=== PATIENT | female | born 1995 | race Caucasian/White ===

== ENCOUNTER → 2018-01-22 13:45 | Observation (INO) ==
[2018-01-22 12:59] LABS: Basophils % 0.2 %; Eosinophils # 0.1 K/mcL (0.0-0.6); Eosinophils % 0.9 %; Hematocrit 31.6 % (35.3-44.9); Hemoglobin 10.9 g/dL (11.5-15.4); Immature Granulocytes % 0.6 % (0-4); Lymphocytes # 2.5 K/mcL (0.6-4.6); Lymphocytes % 24.3 %; Mean Corpuscular HGB Conc 34.5 g/dL (31.6-35.5); Mean Corpuscular Hemoglobin 29.9 pg (28.0-33.3); Mean Corpuscular Volume 86.8 fL (83.0-100.0); Mean Platelet Volume 9.9 fL (9.4-12.4); Monocytes # 0.9 K/mcL (0.0-1.3); Monocytes % 8.2 %; Neutrophils # 6.9 K/mcL (1.6-8.9); Platelet Count 250 K/mcL (140-400); Red Blood Count 3.64 M/mcL (3.82-4.97); Red Cell Distribution Width 13.3 % (11.5-14.5); Segmented Neutrophils % 65.8 %
[2018-01-22 12:59] LABS: Bilirubin,Urine Negative (Negative); Blood,Urine Small (Negative); Clarity,Urine Cloudy (Clear); Color,Urine Yellow (Yellow); Glucose,Urine (UA) Normal (Normal); Ketones,Urine Trace mg/dL (Negative); Leukocyte Esterase,Urine Small (Negative); Nitrite,Urine Negative (Negative); PH,Urine 6.5 pH Units (5.0-8.0); Protein,Urine Negative (Neg-Trace); Specific Gravity,Urine 1.014 (1.010-1.025); Urobilinogen,Urine Normal (Normal)
[2018-01-22 13:02] LABS: Bacteria,Urine None Seen per hpf (None-Few); Hyaline Casts,Urine None Seen per lpf (None-Few); Squamous Epithelial Cell,Urine Many per lpf (None-Few)
[2018-01-22 13:10] LABS: Amphetamine Screen,Urine Negative ng/mL (Cutoff=1000); Barbiturate Screen,Urine Negative ng/mL (Cutoff=200); Benzodiazepines Screen,Urine Negative ng/mL (Cutoff=200); Cannabinoid Screen,Urine Negative ng/mL (Cutoff = 50); Cocaine Screen,Urine Negative ng/mL (Cutoff= 300); Opiate Screen,Urine Negative ng/mL (Cutoff=300); Phencyclidine Screen,Urine Negative ng/mL (Cutoff=25); Potassium 3.6 mEq/L (3.5-5.1)
--- NOTE | 2018-01-22 13:39 | Discharge Summary ---
Date of Encounter: 01/22/18 Time of Encounter: 13:39 - Discharge Diagnosis (1) 34 weeks gestation of Priority: Primary Status: Acute Comments: admitted to for observation (2) Nausea & vomiting Priority: Secondary Status: Acute Comments: Patient will take Zofran and Promethazine as noted. Qualifiers: Vomiting type: unspecified Vomiting Intractability: unspecified Qualified Code(s): R11.2 - Nausea with vomiting, unspecified - Discharge Medications Home Medications: Metoclopramide [Reglan] 10 mg PO Q6HR PRN #30 tablet 07/18/17 [Rx] Allergies/Adverse Reactions: 3 Allergy/AdvReac Type Severity Reaction Status Date / Time No Known Allergies Allergy Verified 07/18/17 14:40 Data Procedures and tests throughout hospitalization: Laboratory Tests 01/22/18 01/22/18 01/22/18 11:45 11:45 11:45 WBC 10.5 RBC 3.64 L Hgb 10.9 L Hct 31.6 L MCV 86.8 MCH 29.9 MCHC 34.5 RDW 13.3 Plt Count 250 MPV 9.9 Immature Gran % 0.6 Seg Neutrophils % 65.8 Lymphocytes % 24.3 Monocytes % 8.2 Eosinophils % 0.9 Basophils % 0.2 Neutrophils # 6.9 Lymphocytes # 2.5 Monocytes # 0.9 Eosinophils # 0.1 Basophils # 0.0 Sodium 138 Potassium 3.6 Chloride 107 Carbon Dioxide 21 L Urine Color Urine Clarity Urine pH Ur Specific Victor Urine Protein Urine Glucose (UA) Urine Ketones Urine Blood Urine Nitrite Urine Bilirubin Urine Urobilinogen Ur Leukocyte Esterase Urine Microscopic RBC Urine Microscopic WBC Ur Squamous Epith Cells Urine Bacteria Hyaline Casts Ur Culture Indicated? Urine Opiates Screen Negative Ur Barbiturates Screen Negative Ur Phencyclidine Scrn Negative Ur Amphetamines Screen Negative U Benzodiazepines Scrn Negative Urine Cocaine Screen Negative U Marijuana (THC) Screen Negative 01/22/18 12:01 WBC RBC Hgb Hct MCV MCH MCHC RDW Plt Count MPV Immature Gran % Seg Neutrophils % Lymphocytes % Monocytes % Eosinophils % Basophils % Neutrophils # Lymphocytes # Monocytes # Eosinophils # Basophils # Sodium Potassium Chloride Carbon Dioxide Urine Color Yellow Urine Clarity Cloudy A Urine pH 6.5 Ur Specific Victor 1.014 Urine Protein Negative Urine Glucose (UA) Normal Urine Ketones Trace H Urine Blood Small H Urine Nitrite Negative Urine Bilirubin Negative Urine Urobilinogen Normal Ur Leukocyte Esterase Small H Urine Microscopic RBC 3-5 H Urine Microscopic WBC 5-15 H Ur Squamous Epith Cells Many H Urine Bacteria None Seen Hyaline Casts None Seen Ur Culture Indicated? NO. A Urine Opiates Screen Ur Barbiturates Screen Ur Phencyclidine Scrn Ur Amphetamines Screen U Benzodiazepines Scrn Urine Cocaine Screen U Marijuana (THC) Screen Labs on day of discharge: Labs from last 24 hours 01/22/18 01/22/18 01/22/18 12:01 11:45 11:45 WBC RBC Hgb Hct MCV MCH MCHC RDW Plt Count MPV Immature Gran % Seg Neutrophils % Lymphocytes % Monocytes % Eosinophils % Basophils % Neutrophils # Lymphocytes # Monocytes # Eosinophils # Basophils # Sodium 138 Potassium 3.6 Chloride 107 Carbon Dioxide 21 L Urine Color Yellow Urine Clarity Cloudy A Urine pH 6.5 Ur Specific Victor 1.014 Urine Protein Negative Urine Glucose (UA) Normal Urine Ketones Trace H Urine Blood Small H Urine Nitrite Negative Urine Bilirubin Negative Urine Urobilinogen Normal Ur Leukocyte Esterase Small H Urine Microscopic RBC 3-5 H Urine Microscopic WBC 5-15 H Ur Squamous Epith Cells Many H Urine Bacteria None Seen Hyaline Casts None Seen Urine Yeast Pending Ur Culture Indicated? NO. A Urine Opiates Screen Negative Ur Barbiturates Screen Negative Ur Phencyclidine Scrn Negative Ur Amphetamines Screen Negative U Benzodiazepines Scrn Negative Urine Cocaine Screen Negative U Marijuana (THC) Screen Negative 01/22/18 11:45 WBC 10.5 RBC 3.64 L Hgb 10.9 L Hct 31.6 L MCV 86.8 MCH 29.9 MCHC 34.5 RDW 13.3 Plt Count 250 MPV 9.9 Immature Gran % 0.6 Seg Neutrophils % 65.8 Lymphocytes % 24.3 Monocytes % 8.2 Eosinophils % 0.9 Basophils % 0.2 Neutrophils # 6.9 Lymphocytes # 2.5 Monocytes # 0.9 Eosinophils # 0.1 Basophils # 0.0 Sodium Potassium Chloride Carbon Dioxide Urine Color Urine Clarity Urine pH Ur Specific Victor Urine Protein Urine Glucose (UA) Urine Ketones Urine Blood Urine Nitrite Urine Bilirubin Urine Urobilinogen Ur Leukocyte Esterase Urine Microscopic RBC Urine Microscopic WBC Ur Squamous Epith Cells Urine Bacteria Hyaline Casts Urine Yeast Ur Culture Indicated? Urine Opiates Screen Ur Barbiturates Screen Ur Phencyclidine Scrn Ur Amphetamines Screen U Benzodiazepines Scrn Urine Cocaine Screen U Marijuana (THC) Screen Date of admission: 01/22/18 11:40 Primary care physician: PCP NONE Discharging clinician: Theodora Galdamez Anticipated date of discharge: 01/22/18 - Patient Status Disposition: Home, Self-Care Condition: Good Functional capacity at discharge: independent ambulation - Discharge Instructions Follow Up With: NONE,PCP [Primary Care Provider] - Maikel Roblero DO [Partnered Physician] - - Diet and Activity Activity: increase activity as tolerated Diet: regular diet Hospital Course [employer] [facility] Hospital course: Patient is a 22 y/o at 34 weeks gestation presents to labor and delivery with complaints of nausea, vomiting and diarrhea for the past three days. Patient reports she takes Zofran every morning but it did not help today. Patient reports she is able to keep fluids down. Patient reports +FM. Denies LOF , VB or contractions. Time Attestation: Total time spent providing and/or coordinating discharge services: Time Spent: Less than 30 minutes Exam - Constitutional General appearance IM: A&O X 3, pleasant, answers questions appropriately - Respiratory Respiratory exam: Present: CTAB - Cardiovascular Cardiovascular exam IM: Present: RRR, +S1, +S2 - GI/Abdominal GI/Abdominal exam IM: normal bowel sounds - Extremities Exam Extremities exam IM: Present: full ROM, normal capillary refill, normal inspection - Neurological Exam Neurological exam: alert, oriented X3, reflexes normal - Other Additional findings: FHR 130 bpm moderate variability +15x15 accels no decels noted. No contractions noted. CAT 1 tracing - VTE Reasons for not Prescribing Prophylaxis: Treatment not Indicated - Low risk for VTE
== END | disposition home or self-care (01) ==
LOC: 1NENULAB
PROVIDERS: ADMIT Student in an Organized Health Care Education/Training Program; ATTEND Student in an Organized Health Care Education/Training Program

== ENCOUNTER 2018-02-23 04:59 | Inpatient (IN) ==
[~2018-02-23 04:59] MED LIST: *HR* Nalbuphine 10 MG/ML AMPUL IVP PRN; Famotidine 20 MG/2 ML VIAL IVP PRN; Metoclopramide 10 MG/2 ML VIAL IVP PRN; Naloxone 0.4 MG/ML INJ IVP PRN; Ondansetron 4 MG/2 ML VIAL IVP PRN; Ringers Solution, Lactated 1,000 ML ONE
[2018-02-23] MEDS ORDERED: Ringers Solution, Lactated 1,000 ML IVC SCH (05:00)
[2018-02-23 05:13] LABS: Basophils # 0.1 K/mcL (0.0-0.2); Basophils % 0.9 %; Eosinophils # 0.5 K/mcL (0.0-0.6); Hematocrit 34.9 % (35.3-44.9); Hemoglobin 12.2 g/dL (11.5-15.4); Immature Granulocytes % 0.6 % (0-4); Lymphocytes # 3.9 K/mcL (0.6-4.6); Lymphocytes % 30.9 %; Mean Corpuscular Hemoglobin 30.1 pg (28.0-33.3); Mean Corpuscular Volume 86.2 fL (83.0-100.0); Mean Platelet Volume 10.1 fL (9.4-12.4); Monocytes % 7.5 %; Neutrophils # 7.1 K/mcL (1.6-8.9); Platelet Count 247 K/mcL (140-400); Red Blood Count 4.05 M/mcL (3.82-4.97); Red Cell Distribution Width 13.5 % (11.5-14.5); Segmented Neutrophils % 56.1 %
[2018-02-23] MEDS ORDERED: Oxytocin 20 units/ LR 1000 mL 20 UNIT/1,000 ML BAG IVC SCH ×2 (05:15→13:36)
--- NOTE | 2018-02-23 05:19 | OB/GYN History & Physical ---
Date of Encounter: 02/23/18 Time of Encounter: 05:10 Assessment and Plan (1) 39 weeks gestation of Current visit: Yes Status: Acute (2) Intrauterine Current visit: Yes Status: Acute Admit to L&D for observation of labor Start pitocin Labs-CBC and clot to hold CFM Pain management plan is epidural-may have upon request Anticipate Dr. Barajas is OB boilermaker assembly and erection and is available as needed (3) SROM (spontaneous rupture of membranes) Current visit: Yes Status: Acute History of Present Illness Chief complaint: SROM HPI: Ms. Bob is a 23 year old female 001 at 39 weeks 0 days gestation with an estimated date of of 03/02/18 dated by early ultrasound. She presents this morning status post spontaneous rupture of membranes at 3 AM. She reports her fluid was clear. She states contractions have been building since her water broke. She has been followed this by Dr. Roblero. Her has been uncomplicated. records are available electronically and have been reviewed. Labs: B+ GBS- Hep B- HIV- GC/CL- T. Palladium- Rubella immune Varicella immune Past Med Surg Social Fam HX - Past Medical History Medical history: no medical history Psychiatric history: no psych history - Past Surgical History Surgical History: no surgical history - Social History Smoking Status: Never smoker Smokeless Tobacco Status: No Alcohol use: none Drug use: none - Family History Father Name: roberta Living Status: Still Living Hx Family Cardiac Disorders: Yes (HTN) Obstetrical History - Pregnancies : 3 Para: 1 Term: 1 (02/27/2011, male, vaginal delivery, 6 lbs 9 oz) : 0 Ab's: 1 (2011, elective terminations of ) Livin Medications and Allergies Metoclopramide [Reglan] 10 mg PO Q6HR PRN #30 tablet 07/18/17 [Rx] Ferrous Sulfate 02/23/18 [History] Zofran 02/23/18 [History] 3 Allergy/AdvReac Type Severity Reaction Status Date / Time No Known Allergies Allergy Verified 02/23/18 04:54 Review of System OB All systems PM: reviewed and no additional remarkable complaints except as stated - Constitutional Constitutional ROS IM: as per HPI - Genitourinary Genitourinary: as per HPI Exam - Constitutional Constitutional: well developed, well nourished, average body habitus, mild distress - HEENT HEENT: PERRL, Normocephaly, Mucus Membranes Moist - Neck Neck exam: full ROM - Lungs Respiratory exam: CTAB - Cardiovascular Cardiovascular exam: RRR, +S1, +S2 - Breasts Breast: bilateral: normal - Abdomen Abdomen: Present: bowel sounds normal, gravid, non tender - Extremities Extremities exam: normal inspection, pedal edema, radial pulses palpable and symmetrical - Vulva Vulva: bilateral: normal - Vagina Vagina: Present: normal moisture - Cervix Dilation: 5 (per rn) Effacement: 80 Station: 0 - Uterus Uterus exam: Present: normal size, normal contour - Adnexa Adnexa: bilateral: normal - Anus/Rectum Anus/Rectum: Present: normal perianal skin Results All other labs normal. - VTE Reasons for not Prescribing Prophylaxis: Treatment not Indicated - Low risk for VTE
[2018-02-23 05:22] LABS: Amphetamine Screen,Urine Negative ng/mL (Cutoff=1000); Barbiturate Screen,Urine Negative ng/mL (Cutoff=200); Benzodiazepines Screen,Urine Negative ng/mL (Cutoff=200); Cannabinoid Screen,Urine Negative ng/mL (Cutoff = 50); Cocaine Screen,Urine Negative ng/mL (Cutoff= 300); Opiate Screen,Urine Negative ng/mL (Cutoff=300); Phencyclidine Screen,Urine Negative ng/mL (Cutoff=25)
[2018-02-23] MEDS ORDERED: Oxytocin 20 units/ LR 1000 mL 20 UNIT/1,000 ML BAG IVC ONE (05:27)
[2018-02-23] MEDS ORDERED: Ringers Solution, Lactated 1,000 ML ONE (05:37)
[2018-02-23] MEDS ORDERED: Epidural Premix (fent/bupiv) 110 ML EP SCH (05:45)
[2018-02-23] MEDS ORDERED: Lidocaine -MPF 1% 5 ML AMPUL ONE (05:47)
--- NOTE | 2018-02-23 06:43 | Anesthesia Evaluation PreOp ---
Date of Encounter: 02/23/18 Time of Encounter: 06:00 - Past History Planned Operation: ulises Cardiac History: Denies any Significant Hx Pulmonary History: Denies Any Significant HX [employer] History: Denies Any Significant HX Other Medical History: Denies Any Significant HX Anesthesia History: No Prior Anesthetic Complications : Yes Test: Positive Alcohol Use: none Drug use: none Medications and Allergies Metoclopramide [Reglan] 10 mg PO Q6HR PRN #30 tablet 07/18/17 [Rx] Ferrous Sulfate 02/23/18 [History] Zofran 02/23/18 [History] 3 Allergy/AdvReac Type Severity Reaction Status Date / Time No Known Allergies Allergy Verified 02/23/18 04:54 - Meds/Allergy Pre-op Review Medications Reviewed: Yes Allergies Reviewed: Yes Beta Blockers on Current Med List: No Anesthesia Results - Labs 02/23/18 04:51 Anesthesia Exam - HEENT Pupil (Motor): Pupils equal Mallampati: II Teeth: Normal Oral Opening: Greater than 3 - [employer]ER LOC: Oriented [employer] Motor: Normal RUE, Normal LUE, Normal RLE, Normal LLE, Normal Face [employer] Sensory: Normal: RUE, LUE, RLE, LLE, Face - Cardiac Rhythm: Regular Murmur: None JVD: No Carotid Bruit: No - Pulmonary Breath Sounds: bilateral Clear Respiratory Effort: Symmetrical Anesthesia Assess/Plan ASA Score: 2 Modified Blum Scale for Level of Consciousness: Cooperative, oriented, and tranquil Anesthetic Plan: Regional Autologous Blood: No Monitoring Plan: Standard Monitors
--- NOTE | 2018-02-23 06:45 | Anesthesia Procedures ---
Date of Encounter: 02/23/18 Time of Encounter: 06:00 Procedures: Anesthesia - Epidural/Spinal Patient ID/Chart reviewed: Yes Patient examined: Yes OB Eval: Gestational age: 39 OB Eval: : 2 OB Eval: Hx Para: 1 OB Eval: Dilated at (cm): 7 OB Eval: Contractions: Non-stressed pattern Consent Obtained: Yes Supplemental Oxygen: None/Room Air Site Prep: Aseptic Technique, Sterile prep and drape, Povidone-Iodine 1% Patient position: upright Amount of Local Anesthetic used: 3 Touhy Needle Gauge: 18 Touhy Needle Depth (cm): 8 Catheter Depth at Skin (cm): 10 Test Dose (1.5% Lido + Epi): Volume given (mls): 3 Test Dose Result: Negative Infusion Rate (mls/hr): [address]: Tegaderm, Tape Interspace Used: L4-L5 Loss of Resistance (GUI): Yes Blood: No CSF: No Paresthesia: No Procedure: stable throughout see nursing notes
--- NOTE | 2018-02-23 07:54 | OB Labor Progress Note ---
Date of Encounter: 02/23/18 Time of Encounter: 07:53 Labor Progress Note - Subjective Subjective: Patient resting in bed. Patient denies any pain at this time. - Heart Tones Heart Tones: 125 bpm moderate variability +15x15 accels no decels noted. Cat. 1 tracing. - [place]: 3-4 min apart - Interventions Interventions: Discussed POC with patient - Plan Plan: Continue labor management. anticipate
--- NOTE | 2018-02-23 11:45 | OB/GYN Procedure Note ---
Delivery - Delivery Date: 02/23/18 Provider: Theodora Galdamez Intrapartum events: none Delivery induction: none Delivery augmentation: pitocin Delivery monitor: external FHT, external uterine Anesthesia: epidural Quantitated Blood Loss: 50 - (s) Infant A Infant Delivery Date: 02/23/18 Infant Delivery Time: 11:16 Presentation: vertex Position: MAYA Route of delivery: Gender: Female Viability: Viable Pounds: 6 Ounces: 11 Weight Gram: 3.045 kg at 1 minute: 9 at 5 mins: 9 Shoulder Dystocia: not encountered Cord: 3 umbilical vessels - Repair Episiotomy: none Laceration Description: Periurethral (right-repaired with 4-0 vicryl) - Complications Delivery complications: none - Disposition Mom disposition: stable in LDR [place] disposition: stable in LDR - Comments Comments: Called to LDR patient feeling pressure. SVE: Patient complete and +1 station. Patient was placed in stirrups and prepped for vaginal delivery. Under maternal effort patient spontaneously delivered a viable female infant. No nuchal cord, meconium or shoulder dystocia was encountered. A small right periurethral was noted and repaired with 4-0 vicryl. Cord was clamped and cut after pulsation ceased. Placenta delivered spontaneously and intact. All counts correct and pericare provided. Both mother and infant stable in LDR for 2 hour recovery.
[2018-02-23] MEDS ORDERED: Benzocaine/Menthol 56 GM AEROSOL SPRAY TP PRN (13:36)
[2018-02-23] MEDS ORDERED: Acetaminophen 325 MG TABLET PO PRN (13:36)
[2018-02-23] MEDS ORDERED: Measles/Mumps/Rubella Vacc 0.5 ML VIAL SQ PRN (13:36)
[2018-02-23] MEDS: Ibuprofen 600 MG TABLET PO PRN (19:30)
[2018-02-24] MEDS: Ibuprofen 600 MG TABLET PO PRN (04:18)
[2018-02-24 07:31] VITALS: BP 96/62
[2018-02-24] MEDS ORDERED: Prenatal Vit/FA 1 EACH TABLET PO SCH (09:00)
--- NOTE | 2018-02-24 09:16 | Discharge Summary ---
Date of Encounter: 02/24/18 Time of Encounter: 09:14 - Discharge Diagnosis (1) Vaginal delivery Priority: Primary Status: Acute Comments: Day 1 S/P vaginal delivery Pain well controlled Lochia is light and without clots Tolerating regular diet Urinating and passing flatus without difficulty Bottle feeding is going well Discharge today - Discharge Medications Prescriptions: Ibuprofen [Motrin] 600 mg PO Q6HR PRN #30 tablet PRN Reason: Cramping Docusate [Colace] 100 mg PO BID #30 capsule Home Medications: Metoclopramide [Reglan] 10 mg PO Q6HR PRN #30 tablet 07/18/17 [Rx] Ferrous Sulfate 02/23/18 [History] Zofran 02/23/18 [History] Acetaminophen [Tylenol] 650 mg PO Q6HR PRN tablet 02/24/18 [Rx] Benzocaine/Menthol Sunbright [Dermoplast Sunbright] 1 appl TP QID PRN aerosol 02/24/18 [Rx] Docusate [Colace] 100 mg PO BID #30 capsule 02/24/18 [Rx] Ibuprofen [Motrin] 600 mg PO Q6HR PRN #30 tablet 02/24/18 [Rx] Vit/FA 1 each PO DAILY tablet 02/24/18 [Rx] Allergies/Adverse Reactions: 3 Allergy/AdvReac Type Severity Reaction Status Date / Time No Known Allergies Allergy Verified 02/23/18 04:54 Data Procedures and tests throughout hospitalization: Laboratory Tests 02/23/18 02/23/18 04:41 04:51 WBC 12.7 H RBC 4.05 Hgb 12.2 Hct 34.9 L MCV 86.2 MCH 30.1 MCHC 35.0 RDW 13.5 Plt Count 247 MPV 10.1 Immature Gran % 0.6 Seg Neutrophils % 56.1 Lymphocytes % 30.9 Monocytes % 7.5 Eosinophils % 4.0 Basophils % 0.9 Neutrophils # 7.1 Lymphocytes # 3.9 Monocytes # 1.0 Eosinophils # 0.5 Basophils # 0.1 Urine Opiates Screen Negative Ur Barbiturates Screen Negative Ur Phencyclidine Scrn Negative Ur Amphetamines Screen Negative U Benzodiazepines Scrn Negative Urine Cocaine Screen Negative U Marijuana (THC) Screen Negative Ur Drug Screen Interp See Below Date of admission: 02/23/18 04:59 Consults: 02/23/18 13:36 Consult to [place] [CONS] Routine Comment: Vaginal delivery, consult needed Discharging clinician: Gin White Anticipated date of discharge: 02/24/18 - Patient Status Disposition: Home, Self-Care Condition: Good Functional capacity at discharge: independent ambulation Overall status at discharge: patient is progressing back to baseline - Discharge Instructions Follow Up With: Theodora Galdamez CNM [Non-Partnered Physician] - - Diet and Activity Activity: increase activity as tolerated Diet: regular diet Hospital Course Reason for admission: IUP at term Delivery: Episiotomy: none Laceration: other Other procedures: none complications: none Discharge diagnosis: IUP at term delivered baby: female Time Attestation: Total time spent providing and/or coordinating discharge services: Time Spent: Less than 30 minutes Exam - Constitutional Vitals: Temp Pulse Resp BP Pulse Ox 97.8 F 67 12 96/62 99 02/24/18 07:29 02/24/18 07:29 02/24/18 07:29 02/24/18 07:29 02/24/18 07:29 General appearance IM: cooperative, A&O X 3, pleasant - Respiratory Respiratory exam: Present: CTAB - Cardiovascular Cardiovascular exam IM: Present: RRR, +S1, +S2 - GI/Abdominal GI/Abdominal exam IM: normal bowel sounds, soft - Rectal Rectal exam: deferred - Uterine Tone: Firm Uterus Position: 1 Finger Below Umbilicus, Midline - Neurological Exam Neurological exam: alert, oriented X3, reflexes normal
== END 2018-02-24 11:55 | disposition home or self-care (01) | DRG 560 ==
LOC: 1NENULAB → 1NENUOBS 13:34
PROVIDERS: ADMIT Obstetrics & Gynecology; ATTEND Obstetrics & Gynecology